=== PATIENT | male | born 1945 | race Caucasian/White ===

== ENCOUNTER 2019-11-19 09:07 | Inpatient (IN) | payer OTHER ==
[~2019-11-19] VITALS: Ht 172.7 cm; Wt 89.5 kg
[2019-11-19] VITALS (8 sets, daily range): BP systolic 121–149; BP diastolic 66–91
[~2019-11-19 09:07] MED LIST: DICL-176 PO; GLYCOPYRROLATE 0.2 MG/ML 1ML VIAL IV ONE; LOSA-39 PO; NEOSTIGMINE 1 MG/ML INJ (10mg/10ML VIAL) IV ONE; PANT40TA2 PO; TIZA4CAP PO; TRAM50TA2 PO
[2019-11-19] MEDS ORDERED: ceFAZolin 1GM/50ML 100 ML IV ONE (10:03)
[2019-11-19] MEDS ORDERED: ACETAMINOPHEN IV 100 ML IV ONE (10:04)
[2019-11-19] MEDS ORDERED: PREGABALIN CAPSULE 75 MG CAP PO ONE (10:15)
[2019-11-19] MEDS ORDERED: CELECOXIB 100 MG CAP PO ONE (10:15)
[2019-11-19] MEDS ORDERED: ACETAMINOPHEN IV 1000 MG/100ML (10MG/ML) IV ONE (10:15)
[2019-11-19] MEDS ORDERED: ceFAZolin 1GM 2 GM in D5W 5% 100 ML IV ONE (10:15)
[2019-11-19] MEDS ORDERED: BUPIVACAINE W/ EPINEPH 0.25% INJ 50ML MDV ONE (10:44)
[2019-11-19] MEDS ORDERED: TRANEXAMIC ACID 20 ML ONE (10:44)
[2019-11-19] MEDS ORDERED: KETOROLAC TROMETH 30 MG/ML 1ML VIAL ONE (10:45)
[2019-11-19] MEDS ORDERED: VANCOMYCIN HCL 1000 MG VL ONE (10:45)
[2019-11-19] MEDS ORDERED: TETRACAINE 1% INJ 2 ML VIAL IJ ONE (10:48)
[2019-11-19] MEDS ORDERED: fentaNYL CITRATE 100 MCG/2 ML VL ONE ×2 (11:06→11:48)
[2019-11-19] MEDS ORDERED: ROCURONIUM 10MG/ML 10ML VIAL IV ONE (11:06)
[2019-11-19] MEDS ORDERED: PROPOFOL 10 MG/ML 20 ML IV ONE (11:20)
[2019-11-19] MEDS ORDERED: MORPHINE SULF(PF) 0.5MG/ML 10ML VIAL ONE (11:30)
[2019-11-19] MEDS ORDERED: HYDROmorphone HCL 2 MG/ML VL ONE (11:50)
[2019-11-19] MEDS ORDERED: ePHEDrine SULFATE 50 MG/ML AMP IV PRN (12:00)
[2019-11-19] MEDS ORDERED: ONDANSETRON HCL 4 MG/2 ML VIAL IV PRN ×2 (12:00→13:15)
[2019-11-19] MEDS ORDERED: hydrALAZINE HCL 20 MG/ML VL IV PRN (12:00)
[2019-11-19] MEDS ORDERED: HYDROmorphone HCL 2 MG/ML VL IV PRN ×2 (12:00→13:15)
[2019-11-19] MEDS ORDERED: PANTOPRAZOLE 40 MG TAB PO PRN (13:15)
[2019-11-19] MEDS ORDERED: NITROGLYCERIN 0.4 MG SL TAB SL PRN (13:15)
[2019-11-19] MEDS ORDERED: traMADol HCL 50 MG TAB PO PRN (13:15)
[2019-11-19] MEDS ORDERED: MORPHINE SULF INJ 2 MG/ML SYRINGE 1ML IV PRN (13:15)
[2019-11-19] MEDS ORDERED: TIZANIDINE HYDROCHLORIDE PO PRN (13:15)
[2019-11-19] MEDS: HYDROmorphone HCL 2 MG/ML VL IV PRN ×2 (13:56→14:08)
--- NOTE | 2019-11-19 17:05 | NUR ---
Telemetry admit from [facility] admitted to Telemetry unit after SBAR received. Patient oriented to Thu Arreola, primary RN, unit, room, bed, and unit policies regarding patient care and visiting hours. Patient now on continuous telemetry monitoring, tele box # [id number] and telemetry reading on arrival to unit is sinus rhythm 73. Patient placed on bedside oxygen, weighed by bedscale and encouraged to call if they need something. All questions and concerns addressed, patient verbalized understanding. S/P Lt hip total arthroplasty, aquaseal dressing to lt hip area X2, dressings clean and dry, lt pedal pulse present, pt denies pain at this time, kidd draining to gravity, abductor pillow on, applied janell stockings bilateraly, SCD machine applied bilateraly, incentive spirometer given and educated on the need, frequency, and use, returned demonstration obtain, pt reached to 2500 ml on IS, will continue to monitor pt.
[2019-11-19] MEDS: SODIUM CHLOR 0.9% PF (SALINE LOCK) 10ML VIAL/SYR IV SCH ×2 (17:28→22:15)
[2019-11-19] MEDS: KETOROLAC TROMETH 30 MG/ML 1ML VIAL IV SCH (17:28)
[2019-11-19] MEDS: ceFAZolin 1GM/50ML 50 ML IV SCH ×2 (17:28→23:26)
[2019-11-19] MEDS: LACTATED RINGER'S 1,000 ML IV SCH (17:28)
--- NOTE | 2019-11-19 19:25 | NUR ---
Opening Shift Note Received report from Thu ARZOLA. Assumed care of patient, awake and alert. No S/S of distress/SOB or pain. Instructed on POC and to call for assist PRN. Fall precaution measures in place, will continue to monitor for changes Q1hr and PRN.
[2019-11-19] MEDS: LOSARTAN POTASSIUM 50 MG TAB PO SCH (22:14)
[2019-11-19] MEDS: DOCUSATE SOD 100 MG CAP PO SCH (22:14)
[2019-11-19] MEDS: HYDROcodone-ACET 5/325MG TAB PO PRN (22:15)
--- NOTE | 2019-11-19 22:15 | NUR ---
Patient complains of post op pain at 4/10, [place] PO given. Continue care
--- NOTE | 2019-11-19 22:58 | NUR ---
Dr. Romi Villalobos seen the patient for hospitalist consult.
--- NOTE | 2019-11-19 23:30 | NUR ---
Latest pain level is 2/10.
[2019-11-20] VITALS (19 sets, daily range): BP systolic 99–161; BP diastolic 50–89
[2019-11-20] MEDS: KETOROLAC TROMETH 30 MG/ML 1ML VIAL IV SCH ×4 (00:08→17:27)
[2019-11-20] MEDS: LACTATED RINGER'S 1,000 ML IV SCH ×4 (02:57→18:54)
[2019-11-20] MEDS ORDERED: ceFAZolin 1GM/50ML 50 ML IV ONE (05:26)
[2019-11-20] MEDS: ceFAZolin 1GM/50ML 50 ML IV SCH (05:27)
[2019-11-20] MEDS: SODIUM CHLOR 0.9% PF (SALINE LOCK) 10ML VIAL/SYR IV SCH ×3 (05:59→22:02)
[2019-11-20 06:35] LABS: Hematocrit 35.9 % (41.0-53.0); Hemoglobin 12.1 g/dL (13.5-17.5)
[2019-11-20 06:45] LABS: Potassium 3.9 mmol/L (3.5-5.1)
[2019-11-20 06:52] LABS: Albumin 2.7 g/dL (3.4-5.0); BUN/Creatinine Ratio 14.6; Bilirubin, Total 1.4 mg/dL (0.2-1.0); Calcium 8.2 mg/dL (8.5-10.1); Total Protein 5.8 g/dL (6.4-8.2)
[2019-11-20] MEDS: HYDROcodone-ACET 5/325MG TAB PO PRN ×3 (07:49→20:47)
--- NOTE | 2019-11-20 07:49 | NUR ---
Pain Pt reports pain 4/10 to lt hip incision site, pt request pain medication, will medicate pt as order.
[2019-11-20] MEDS: DOCUSATE SOD 100 MG CAP PO SCH ×2 (09:20→22:00)
[2019-11-20] MEDS: ENOXAPARIN SOD 40 MG/0.4 ML SYRINGE SC SCH (09:20)
--- NOTE | 2019-11-20 09:45 | NUR ---
Physical therapy Pt got out of bed and ambulated to the door and back to bed with physical therapy and a walker.
--- NOTE | 2019-11-20 15:22 | NUR ---
Assessment Patient is a 74-year-old male who is alert and oriented. Prior to admission patient lived home with his [employer] and functioned independently. Patient informed me he can care for his own ADLs. Patient informed me he has a cane for home use. Advised patient there is a social service consult for SNF placement for rehabilitation. Patient informed me he would like to be placed at [facility]. Informed patient clinical information will be faxed to [facility]. Informed patient he has a right to participate in all discharge planning. Patient verbalized understanding and agreed to discharge plan. Faxed clinical information to [facility] and [facility]. Per Denise with [facility] [phone] they can have accepted patient and will provide room number upon discharge day. Placed call to ANA PAULA Rodriguez with [facility] advising her [facility] has accepted. Per ANA PAULA Rodriguez they will provide authorization to facility. Per ANA PAULA Rodriguez she will contact me back with transportation benefits. Addendum: 11/20/19 at 1523 by VINH FERRARO Amended: Links added.
--- NOTE | 2019-11-20 15:50 | NUR ---
Pain Pt reports Lt hip pain 5/10 to incision site, pt request pain medication, will medicate pt as order.
--- NOTE | 2019-11-20 17:35 | NUR ---
Paged Dr. Romi Villalobos to inform that pt is having temperature of 101.1, to inform that pt has no prn Tylenol, and to ask for Tylenol order, left a message, awaiting for call back.
--- NOTE | 2019-11-20 17:35 | NUR ---
Applied ice packs, started cooling measures on pt, removed extra blankets, will monitor pt's temperature.
--- NOTE | 2019-11-20 18:30 | NUR ---
Dr. Romi Villalobos at unit to see pt, doctor informed of pt's temp of 101.4 now, that norco was given at 1552, that pt's BP at 1600 was 161/82, the recheck BP 147/78, that pt's IV fluids are LR at 100 ml/hr, received orders for Tylenol 650 mg po Q6 hr prn, decreased LR at 75 ml/hr, clindamycin 300mg po tid, probiotics 1 tab daily
[2019-11-20] MEDS ORDERED: ACETAMINOPHEN 325 MG TAB PO PRN (18:45)
[2019-11-20] MEDS ORDERED: levoFLOXacin 500MG 100 ML IV ONE (19:00)
[2019-11-20] MEDS: CLINDAMYCIN HCL 150 MG CAP PO SCH (22:01)
[2019-11-20] MEDS: LOSARTAN POTASSIUM 50 MG TAB PO SCH (22:01)
[2019-11-21] MEDS: KETOROLAC TROMETH 30 MG/ML 1ML VIAL IV SCH ×3 (00:04→12:20)
[2019-11-21 05:00] VITALS: BP 153/94
[2019-11-21 05:59] LABS: Hematocrit 38.9 % (41.0-53.0); Hemoglobin 13.1 g/dL (13.5-17.5)
[2019-11-21] MEDS: CLINDAMYCIN HCL 150 MG CAP PO SCH ×2 (06:11→14:00)
[2019-11-21] MEDS: SODIUM CHLOR 0.9% PF (SALINE LOCK) 10ML VIAL/SYR IV SCH ×2 (06:12→16:38)
--- NOTE | 2019-11-21 07:25 | NUR ---
Opening Note Received report from film processing shift supervisor RN. Patient is awake, alert and oriented x4. Patient is on room air, respirations even and unlabored. Patient states pain to left hip 3/10, and is not requesting medications at this time, patient states he is comfortable. Dressing to left hip is clean, dry, and intact. Patient has SCD applied to bilateral lower extremities. Reviewed plan of care with patient, patient verbalized understanding. Bed in low and locked position, call light within reach. Will continue to monitor Q1 hour and PRN.
[2019-11-21] MEDS ORDERED: DOCU100C8 PO (07:35)
[2019-11-21] MEDS ORDERED: ENO40SY SC (07:35)
[2019-11-21] MEDS: LACTATED RINGER'S 1,000 ML IV SCH (08:05)
[2019-11-21 09:00] VITALS: BP 151/89
[2019-11-21] MEDS: DOCUSATE SOD 100 MG CAP PO SCH (09:54)
[2019-11-21] MEDS: HYDROcodone-ACET 5/325MG TAB PO PRN (09:55)
[2019-11-21] MEDS: ENOXAPARIN SOD 40 MG/0.4 ML SYRINGE SC SCH (09:56)
[2019-11-21] MEDS ORDERED: FLORASTOR (S. BOULARDII) 250 MG CAP PO SCH (10:00)
--- NOTE | 2019-11-21 10:59 | NUR ---
Physical Therapy Patient ambulating in hallway with physial therapy. Patient tolerated well. Will continue to monitor Q1 hour and PRN.
[2019-11-21 13:00] VITALS: BP 147/86
--- NOTE | 2019-11-21 13:59 | NUR ---
D/C Planning Per Denise with [facility] [phone] patient will be going to room 212 bed 1 accepting , Dr. Morse. [facility] will transport patient via gurney with a 16:00 product picker time ). Informed RN Summer.
--- NOTE | 2019-11-21 14:01 | NUR ---
obtain authorization from [employer] [facility] for [facility] [id number].
[2019-11-21 14:14] VITALS: BP 145/86
--- NOTE | 2019-11-21 15:01 | NUR ---
Call to Dr Mcclendon Discharge order clarified. Patient ok to discharge to SNF today.
--- NOTE | 2019-11-21 15:55 | NUR ---
TRANSFER TO SNF Discharge instructions given as ordered. All questions and concerns addressed. Patient verbalized understanding. IV removed with catheter intact, pressure dressing applied. Medication reconciliation form completed and copy given to patient. Telemetry unit returned to ICU. Report given to Kelly at [facility] . Patient transported by [facility] with all personal belongings. No signs or symptoms of distress noted at this time.
== END 2019-11-21 16:00 | DRG 470 ==
LOC: SUR 09:07 → TELE-WESTW 16:45
PROVIDERS: ADMIT Orthopaedic Surgery Adult Reconstructive Orthopaedic Surgery; ATTEND Orthopaedic Surgery Adult Reconstructive Orthopaedic Surgery
PROC: 8E0YXBZ Computer Assisted Procedure of Lower Extremity (ICD-10-PCS; 2019-11-19)
PROC: 0SRB06Z Replacement of Left Hip Joint with Oxidized Zirconium on Polyethylene Synthetic Substitute, Open Approach (ICD-10-PCS; principal; 2019-11-19 11:00)
DX: M16.12 Unilateral primary osteoarthritis, left hip (principal); I10 Essential (primary) hypertension; K21.9 Gastro-esophageal reflux disease without esophagitis; Z88.7 Allergy status to serum and vaccine; Z88.8 Allergy status to other drugs, medicaments and biological substances; Z11.59 Encounter for screening for other viral diseases
CPT/HCPCS: 36415; 72170; 73502; 80053; 85014; 85018; 86850; 86900; 86901; 94762; 97116; 97530; A4565; G0378; J0131; J0690; J1885; J1956; J2704; J7060

== ENCOUNTER 2022-08-25 11:35 | Emergency (ER) | payer OTHER ==
[~2022-08-25] VITALS: Ht 165.1 cm; Wt 90.0 kg
[~2022-08-25 11:35] MED LIST changes: -DICL-176 PO; +DICL75TA3 PO; +DOCU100C10 PO; +ENO40SY SC; -GLYCOPYRROLATE 0.2 MG/ML 1ML VIAL IV ONE; -NEOSTIGMINE 1 MG/ML INJ (10mg/10ML VIAL) IV ONE
[2022-08-25] MEDS ORDERED: ASPirin 81 mg TAB PO ONE (12:15)
[2022-08-25] MEDS: ALBUTEROL SULF 2.5 MG/0.5ML(0.5%) NEB SOLN NEB ONE ×2 (12:23→13:41)
[2022-08-25] MEDS: IPRATROPIUM BROM 0.5 MG/2.5ML INH SOL NEB ONE ×2 (12:23→13:41)
[2022-08-25 12:27] LABS: Urine Bacteria NONE SEEN /hpf (None Seen); Urine Blood 1+ /uL (Negative); Urine Specific Gravity 1.014 (1.001-1.035); Urine WBC 12 /hpf (0 - 3)
[2022-08-25 12:51] LABS: Hemoglobin 15.5 g/dL (13.5-17.5); Mean Corpuscular Hemoglobin 30.7 pg (28.0-32.0); Mean Corpuscular Hgb Conc. 35.2 g/dL (32.0-36.0); Mean Corpuscular Volume 87.1 fL (80.0-100.0); Red Blood Cells 5.05 10^6/uL (4.5-5.90); Red Cell Distribution Width 13.2 % (11.8-14.3); White Blood Cell 10.6 10^3/uL (4.4-10.8)
[2022-08-25 12:57] LABS: Basophils % (manual) 0 (0.0-2.0); Blast Cells 0; Myelocytes % 0; Promyelocytes % 0; Reactive Lymphocytes 0
[2022-08-25 13:04] LABS: INR 1.08 (0.9-1.15); Partial Thromboplastin Time 36.7 sec (24.6-33.4)
[2022-08-25 13:14] LABS: Band Neutrophils % (manual) 5; Eosinophils % (manual) 5 (0-7); Lymphocytes % (manual) 14 (10.0-50.0); Metamyelocytes % 1; Monocytes % (manual) 10 (0-12)
[2022-08-25 14:22] LABS: Albumin 3.4 g/dL (3.4-5.0); Bilirubin, Total 1.4 mg/dL (0.2-1.0); Calcium 9.2 mg/dL (8.5-10.1); Magnesium 2.4 mg/dL (1.6-2.6); Potassium 4.3 mmol/L (3.5-5.1); Total Protein 7.6 g/dL (6.4-8.2)
[2022-08-25] MEDS ORDERED: predniSONE 20 MG TAB PO ONE (16:15)
[2022-08-25] MEDS ORDERED: PRED20TA2 PO (16:38)
[2022-08-25] MEDS ORDERED: PSEU120T2 PO (16:38)
[2022-08-25] MEDS ORDERED: LEVA1AER IN (16:38)
[2022-08-25 17:03] VITALS: BP 143/84
== END 2022-08-25 17:04 | disposition home or self-care (01) ==
LOC: ER 11:35
DX: J84.9 Interstitial pulmonary disease, unspecified (principal); I10 Essential (primary) hypertension; Z88.6 Allergy status to analgesic agent
CPT/HCPCS: 36415; 71045; 71250; 80053; 81001; 83735; 83880; 84484; 85007; 85027; 85610; 85730; 87040; 93005; 94640; 99285; J7512; J7644